=== PATIENT | male | born 1970 ===

== ENCOUNTER 2018-01-20 06:33 | Day surgery (SDC) | payer OTHER ==
[2018-01-01 09:41] VITALS: BMI 27.2
[~2018-01-20 06:33] MED LIST: Ciprofloxacin 0.3% OPTH SOLN OD SCH; Ketorolac Tromethamine 0.5% Opth Soln (3 ml) OD SCH; Lactated Ringer's 500 ML IV ONE; Phenylephrine 2.5% Opht Soln OD SCH; Tropicamide 0.5% Opht Sol OD SCH; acetaZOLAMIDE 500 mg SR Cap PO ONE
[2018-01-20] MEDS ORDERED: Povidone Iodine Ophthalmic 5% Soln ONE (07:43)
[2018-01-20] MEDS ORDERED: Carbachol 0.01% IO ONE (07:43)
[2018-01-20] MEDS ORDERED: Tobramycin/Dexamethasone OPHT OINT ONE (07:43)
[2018-01-20] MEDS ORDERED: Tetracaine 0.5% Ophth (OR ONLY) ONE (07:43)
[2018-01-20] MEDS ORDERED: Chondroitin/Hyaluronate Opth Syringe KIT (0.55 ml-0.5 ml) IO ONE ×2 (07:44→07:45)
[2018-01-20] MEDS ORDERED: Hyaluronidase Human, Recombi 150 U/ML VIAL ONE ×2 (07:44→07:46)
[2018-01-20] MEDS ORDERED: Lidocaine 2% MPF (5 ml) Inj ONE ×2 (07:44→07:46)
[2018-01-20] MEDS ORDERED: Lactated Ringer's 500 ML IV ONE (08:00)
[2018-01-20] MEDS ORDERED: Midazolam 2 MG/2 ML VIAL ONE (10:26)
[2018-01-20] MEDS ORDERED: acetaZOLAMIDE 500 mg SR Cap PO ONE (11:11)
[2018-01-20 12:49] VITALS: BP 106/73; PULSE 92; RESP 18; TEMP 97.6; O2SAT 99
--- NOTE | 2018-01-20 20:43 | OP ---
PROCEDURE DATE: 01/20/2018 PREOPERATIVE DIAGNOSIS: Cataract, right eye. POSTOPERATIVE DIAGNOSIS: Cataract, right eye. OPERATIVE PROCEDURE: Phacoemulsification, right eye, insertion of posterior chamber implant. SURGEON: Jose Bustamante MD CO-SURGEON: Yousuf Nolen MD ANESTHESIA TYPE: Local intravenous sedation. PROCEDURE: The patient was brought into the operating room, placed in supine position, prepped and draped in the usual fashion for ophthalmic surgery. Lid speculum was inserted, lids and exposing globe. A side-port incision was made superiorly and inferiorly with a disposable sharp blade. Anterior chamber was filled with Viscoat. A near clear corneal incision was made temporally with a 2.75-mm keratome. Capsulorrhexis was then performed with Utrata forceps. Hydrodissection carried out with balanced salt solution. Nucleus was phacoemulsified. Remaining cortical fragments were removed with a split irrigation and aspiration system. The capsular sac was filled with Provisc. A posterior chamber lens was then injected into the capsular sac and rotated into horizontal position. Provisc was aspirated out of the anterior chamber. The pupil was constricted with Miochol. The wound was found to be watertight. Topical Betadine, Timoptic, and TobraDex ointment and pressure patch were applied. The patient tolerated the procedure well. Jose Bustamante MD
== END 2018-01-20 11:43 | disposition home or self-care (01) ==
LOC: C.SDS 06:33
PROVIDERS: ATTEND Ophthalmology
DX: H25.11 Age-related nuclear cataract, right eye (principal)
CPT/HCPCS: 66984; J2250; J3010; J3470; J7120